=== PATIENT | female | born 2000 | race African-American/Black ===

== ENCOUNTER 2022-06-12 12:12 | Emergency (ER) | payer OTHER, SELFPAY ==
[2022-06-12 12:27] VITALS: BP 108/76; PULSE 80; RESP 16; TEMP 36.2; O2SAT 96; BMI 28.9
--- OUTSIDE RECORDS SUMMARY | 2022-06-12 14:04 | XMS_ITS | Clinical Summary ---
:2000 Author Organization [employer] [place] [address] Care Team Providers Name Role Phone Gil Rivera MD Primary Care Provider [phone] Allergies No known active allergies Medications Medication Sig Dispensed Refills Start End Status Date Date blood sugar Test blood 300 Each 0 11/08/19 Active diagnostic glucose 3 times 21 (OneTouch Verio a day. test strips) stripIndications: Uncontrolled type 2 diabetes mellitus with hyperglycemia (HC) lancets 33 gauge As directed. 100 Each 3 12/15/19 Active miscIndications: test 3x day 21 Type 2 diabetes mellitus without complication, with long-term current use of insulin (HC) Insulin [place], USE WITH INSULIN 100 Each 3 08/03/20 Active Disposable, DIRECTED 21 (UltiCare Pen Needle) 32 gauge x /32Indications: Uncontrolled type 2 diabetes mellitus with hyperglycemia (HC) paliperidone Inject 117 mg 0 Act kaitlin palmitate (INVEGA intramuscular SUSTENNA) 117 every 4 weeks. mg/0.75 mL intramuscular syringe Vitamin D-3 50 mcg Take 2,000 units 0 11/04/19 Active (2,000 unit) by mouth once 22 capsule daily. metFORMIN Take 2 Tablets 360 Tablet 3 12/20/19 Acti ve (GLUCOPHAGE XR) 500 (1,000 mg) by 22 mg Extended-Release mouth 2 times tabletIndications: daily with Uncontrolled type 2 meals. diabetes mellitus with hyperglycemia (HC) cholecalciferol Take 1 Capsule 100 Capsule 0 12/20/19 Active (Vitamin D-3) 2,000 (2,000 units) by 22 unit mouth once capsuleIndications: daily. Vitamin D deficiency ferrous sulfate 325 Take 1 Tablet 90 Tablet 0 12/20/19 Active mg delayed release (325 mg) by 22 tabletIndications: mouth once daily Other iron with a meal. deficiency anemia FreeStyle Juan 2 To be used to 2 Each 12 01/24/20 Active SensorIndications: read blood 22 Uncontrolled type 2 sugars per diabetes mellitus sde's with hyperglycemia directions. (HC) Change sensor every 14 days Semglee,insulin Inject 50 units 15 mL 05/08/20 Active glarg-yfgn,Pen 100 subcutaneous 22 unit/mL (3 mL) before bedtime. penIndications: Uncontrolled type 2 diabetes mellitus with hyperglycemia (HC) Blood-Glucose Use to test 1 Kit 05/08/20 Acti ve MeterIndications: blood glucose 3 22 Uncontrolled type 2 times a day. diabetes mellitus with hyperglycemia (HC) insulin degludec, Inject 50 units 8 mL 05/22/20 Active U-200, (Tresiba subcutaneous 22 FlexTouch U-200) once daily. 200 unit/mL (3 mL) penIndications: Uncontrolled type 2 diabetes mellitus with hyperglycemia (HC) semaglutide Inject 0.25 mg 1.5 mL 05/22/20 Act kaitlin (Ozempic) 2 mg/1.5 subcutaneous 22 mL (0.25mg or 0.5mg once weekly. doses) After 1 month penIndications: increase to Uncontrolled type 2 0.5mg WEEKLY diabetes mellitus with hyperglycemia (HC) insulin glargine, Inject 50 units 15 mL 12/20/19 Discontinued U-100, (Basaglar subcutaneous 22 022 (*Medication KwikPen U-100 before bedtime. adjustment) Insulin) 100 Product desired: unit/mL (3 mL) BASAGLAR penIndications: Uncontrolled type 2 diabetes mellitus with hyperglycemia (HC) insulin aspart, Inject 15 units 15 mL 05/08/20 Discontinued U-100, (NOVOLOG subcutaneous 22 022 ( *Medication FLEXPEN) 100 three times adjus tment) unit/mL (3 mL) daily before penIndications: meals. Uncontrolled type 2 diabetes mellitus with hyperglycemia (HC) Dexcom G6 Filter Tender Jelly To be used to 1 Each 0 05/08/20 Discontinued for continuous read blood 22 022 (*Av ailability/ blood glucose sugars follow Fo rmulary monitor sde change/ Cost of (CGM)Indications: directions. medication) Uncontrolled type 2 diabetes mellitus with hyperglycemia (HC) Dexcom G6 Sensor To be used to 9 Each 3 05/08/20 Discontinued for continuous read blood 22 022 (*Av ailability/ blood glucose sugars, follow F ormulary monitor sde change/ Cost of (CGM)Indications: directions. medication) Uncontrolled type 2 diabetes mellitus with hyperglycemia (HC) Dexcom G6 To be used to 1 Each 4 05/08/20 Discon tinued Transmitter for read blood 22 022 (*A vailability/ continuous blood sugars, follow Formulary glucose monitor sde c hange/Cost of (CGM)Indications: directions. medication) Uncontrolled type 2 diabetes mellitus with hyperglycemia (HC) fluconazole Take 1 Tablet 2 Tablet 0 05/22/20 Expi red (DIFLUCAN) 150 mg (150 mg) by 22 022 tabletIndications: mouth one time Yeast vaginitis for 1 dose. May repeat in 3 days. fluconazole Take 1 Tablet 2 Tablet 0 05/27/20 Expi red (DIFLUCAN) 150 mg (150 mg) by 22 022 tabletIndications: mouth every 48 Acute vaginitis hours for 2 doses. 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 Secondary to neuroleptic. Schizoaffective disorder, bipolar type 08/06/2019 Overview: Patient stabilized with lithium 600 mg B ID and haloperidol 5 mg TID (level of haloperidol at this dose was 12.5). Haloperidol decreased to 5 mg BID due to side effects (drooling and akathisa) before discharge. 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 09/07/19 Hyperglycemia 09/07/2020 Encounters Date Type Specialty Care Team Description 05/27/2022 Emergency [facility] kimberley Cisneros NP (Primary Dx) 05/27/2022 Travel 05/22/2022 Nurse/Clinic Staff Only Mant oux (PPD mantoux test performed) 05/22/2022 Patient Outreach Latisha Koehler Diabe tes (High A1C) RN 05/22/2022 Travel 05/16/2022 Telemedicine Terri Nelson Failed Appo intment; THIEN Ritchie Telehealth 05/08/2022 Office Visit Gil Rivera MD 05/08/2022 Travel 04/24/2022 Travel 04/24/2022 Nurse Triage Gil Rivera Vaginal Disch layne Carmichael MD from Last 3 Months Immunizations Name Administration Dates Next Due COVID-19 vaccine (A and A Travel Service 09/21/2021, 12/27/2020, 30mcg/0.3mL) ANGELIQUE ORNELAS DTaP 02/16/2005, 09/23/2001, 02/14/2001, 2000, 2000, 2000 DTaP-HIB (TriHIBIT) 09/23/2001 HIB PRP-OMP (PedvaxHIB) 05/23/2001 HIB PRP-T (ActHIB,Hiberix) 09/23/2001, 05/23/2001, 1, 2000 Hepatitis A (Peds) 05/20/2009, 2008 Hepatitis B (Peds) 02/14/2001, 2000, 2000 Hepatitis B, Unspecified 02/14/2001, 2000, 2000 Hib Conjugate, Unspecified 2000, 2000 Human Papilloma Virus Vaccine 10/20/2012, 06/19/2012, 2011 Inactivated Polio Vaccine 02/16/2005, 02/14/2001, 2000 , 2000 Influenza A (H1N1), Inactivated 08/04/2009 Influenza A (H1N1), Inactivated (Age 1208/04/2009 >=3 Years) Influenza Virus, Unspecified 08/24/2013, 06/14/2011, 009, 07/08/2008, 07/08/2007 Influenza, IIV3 (Age >=3 years) 08/24/2013, 06/14/2011, 04/27, 07/08/2008, 07/08/2007 Influenza, IIV4 08/20/2017, 11/05/2014 Influenza,LAIV4 Live Intranasal 05/14/2012 (Flumist) MMR 02/16/2005, 09/23/2001 Meningococcal Vaccine (Menactra) 04/15/2012 Meningococcal Vaccine (Menveo) 03/25/2018 Pneumococcal Poly,23-Valent 04/04/2021 (Pneumovax) Pneumococcal conj 7-Valent (Prevnar 7) 09/23/2001, 1, 2000 Polio Virus, Unspecified 2000, 2000 Tdap 04/15/2012 Tuberculin (PPD) 05/22/2022 Varicella Vaccine 10/09/2006, 05/23/2001 Family History Medical History Relation Name Comments Diabetes Paternal Grandmother Eczema Sister Obesity Sister Relation Name Status Comments Paternal Grandmother Sister Social History Tobacco Use Types Packs/Day Years Used Date Never Smoker Smokeless Tobacco: Never Used Tobacco Cessation: Counseling Given: No Alcohol Use Standard Drinks/Week Comments No 0 (1 standard drink = 0.6 oz pure alcoho l) Sex Assigned at Date Recorded Not on file COVID-19 Exposure Response Date Recorded In the last 10 days, have you been in contact with No / Unsu re 05/27/2022 11:38 AM CDT someone who was confirmed or suspected to have Coronavirus/COVID-19? Obstetrics History Last Filed Vital Signs Vital Sign Reading Time Taken Comments Blood Pressure 125/82 05/27/2022 11:47 AM CDT Pulse 101 05/27/2022 12:00 PM CDT Temperature 36.8 ??C (98.2 ??F) 05/27/2022 11:47 AM CDT Respiratory Rate 18 05/27/2022 11:47 AM CDT Oxygen Saturation 97% 05/27/2022 12:00 PM CDT Inhaled Oxygen Concentration - - Weight 87.1 kg (192 lb) 05/27/2022 11:47 AM CDT Height 172.7 cm (5' 8) 05/27/2022 11:47 AM CDT Body Mass Index 29.19 05/27/2022 11:47 AM CDT Plan of Treatment Upcoming Encounters Date Type Specialty Care Team Description 06/18/2022 Patient Outreach Latisha Koehler RN [phone] [place] [address] (Wo rk) 08/07/2022 Office Visit Gil Rivera MD [address] [place], [place] [address] (Wo rk) Health Maintenance Due Date Last Done Comments Pap test for age 21-65 2021 COVID-19 vaccine series (4 - 11/16/2021 09/21/2021, 021, Booster for Pfizer series) 12/04/2020 Pneumococcal series for age 19-64 04/04/2022 04/04/2021 (2 - PCV) Tetanus booster 04/15/2022 04/15/2012 Influenza for age 9-49 04/26/2022 08/20/2017, 11/05/2014, 08/24/2013, Additional history exists Depression screening for age 12+ 11/23/2022 11/23/2021, 05/2021, 10/14/2020, Additional history exists BMI (ht and wt on same day) for 01/23/2023 01/23/2022, 11/25, age 18+ 04/04/2021, Additional history exists Hepatitis B series for Diabetes Completed 02/14/2001, 01/25, 2000, Additional history exists Tdap Completed 04/15/2012 HPV series for age 9-26 Completed 10/20/2012, 06/19/2012, 04/15/2012 Hepatitis C screening for age Completed 12/10/2017 18-79 Procedures Procedure Name Priority Date/Time Associated Diagnosis Comme nts TRICHOMONAS, STAT 05/27/2022 12:17 Results for this PORSCHE, AND PM CDT procedure are i n BACTERIAL VAGINOSIS the resu lts BY REYES section. URINALYSIS STAT 05/27/2022 12:02 Results for this MICROSCOPIC PM CDT procedure are i n the results section. UA W/ SEDIMENT EXAM STAT 05/27/2022 12:02 Resu lts for this REFLEXED PER PM CDT procedure are i n CRITERIA the results section. HEMOGLOBIN A1C STAT 05/08/2022 1:36 PM Uncontrolled type 2 Results for this CDT diabetes mellitus procedure are in with hyperglycemia the resul ts (HC) section. from Last 3 Months Results (ABNORMAL) TRICHOMONAS, PORSCHE, AND BACTERIAL VAGINOSIS BY REYES (05/27/2022 12:17 PM CDT) [facility] Method Time Signature PORSCHE SPECIES Positive (A) Negative 05/29/2022 [facility]15 PM CDT LABORATORY-CE NTRAL LABORATORY PORSCHE Negative Negative 05/29/2022 [facility]ATA 1:15 PM CDT LABORATORY-CE NTRAL LABORATORY TRICHOMONAS VVA Negative Negative 05/29/2022 [facility] 1:15 PM CDT LABORATORY-CE NTRAL LABORATORY BACTERIAL Negative Negative 05/29/2022 [facility] VAGINOSIS 1:15 PM CDT LABORATORY-CE NTRAL LABORATORY Specimen Anatomical Collection Method Collection Time Receive d Time (Source) Location / / Volume Laterality Other VAGINAL SWAB / Non-Blood / 05/27/2022 12:17 2 Unknown Unknown PM CDT 12:20 PM CDT Wendy Ramirez MD MICROBIOLOGY Performing Organization Address City/State/ZIP Code Phon e Number [facility] [address] [place] [address] LABORATORY-CENTRAL 2000 LABORATORY (ABNORMAL) URINALYSIS MICROSCOPIC (05/27/2022 12:02 PM CDT) [facility] Method Time Signature RBC 26-50 (A) 0-2, None 05/27/2022 [place] Seen /HPF 12:13 PM [facility] LAB[facility]ORY WBC 0-2 0-2, 3-5, 05/27/2022 [place] None Seen 12:13 PM CDT [facility] /HPF LABORATORY BACTERIA Many (A) None 05/27/2022 [place] Seen, 12:13 PM CDT [facility] Rare, Few LABORATORY Bacteria/ HPF EPITHELIAL Moderate (A) None 05/27/2022 [facility] CELLS Seen, Few 12:13 PM [facility] Epi/HPF LABORATORY Specimen Anatomical Collection Method Collection Time Receive d Time (Source) Location / / Volume Laterality Urine URINE SPECIMEN / Non-Blood / 05/27/2022 12:02 022 Unknown Unknown PM CDT 12:06 PM CDT Maryanne Meraz NP URINE Performing Organization Address City/State/ZIP Code Phon e Number [facility] LABORATORY [address] [place] [address] (ABNORMAL) UA W/ SEDIMENT EXAM REFLEXED PER CRITERIA (05/27/2022 12:02 PM CDT) [facility] Method Time Signature COLOR Yellow Yellow Color 05/27/2022 [facility] 12:10 PM [facility] LABORATORY CLARITY Clear Clear 05/27/2022 [facility] Clarity 12:10 PM [facility] SPECIFIC >=1.030 (A) 1.010, 05/27/2022 [facility] GRAVITY,URINE 1.015, 12:10 PM MEDICAL 1.020, 1.025 T [facility]ENTER LABORATORY PH,URINE 5.5 6.0, 7.0, 05/27/2022 [place] 8.0, 5.5, 12:10 PM MEDICAL 6.5, 7.5, CDT CENTER 8.5 LABORATORY UROBILINOGEN, Normal Normal EU/dl 05/27/2022 [facility] 12:10 PM [facility]ICAL T [facility] LABORATORY PROTEIN, Trace (A) Negative 05/27/2022 [facility] URINE mg/dL 12:10 PM [facility] LABORATORY GLUCOSE, 500 (A) Negative 05/27/2022 [facility] URINE mg/dL 12:10 PM [facility] LABORATORY KETONES,URINE >=80 (A) Negative 05/27/2022 [facility] mg/dL 12:10 PM [facility] LABORATORY BILIRUBIN,URI Negative Negative 05/27/2022 [facility] NE 12:10 PM [facility] LABORATORY OCCULT Moderate (A) Negative 05/27/2022 [facility] BLOOD,URINE 12:10 PM [facility] LABORATORY NITRITE Negative Negative 05/27/2022 [facility] 12:10 PM [facility] LABORATORY LEUKOCYTE Negative Negative 05/27/2022 [facility] ESTERASE 12:10 PM [facility] LABORATORY Specimen Anatomical Collection Method Collection Time Receive d Time (Source) Location / / Volume Laterality Urine URINE SPECIMEN / Non-Blood / 05/27/2022 12:02 022 Unknown Unknown PM CDT 12:06 PM CDT Maryanne Meraz NP URINE Performing Organization Address City/State/ZIP Code Phon e Number [facility] LABORATORY [address] [place] [address] (ABNORMAL) HEMOGLOBIN A1C MONITORING (POCT) (05/08/2022 1:36 PM CDT) [facility] gist Method Time Signature HEMOGLOBIN A1C >14.0 (H) <=6.4 % 05/08/2022 [facility] MONITORING 1:48 PM CDT [place] [facility] Specimen Anatomical Collection Method / Collection Time Recei yogi Time (Source) Location / Volume Laterality Blood BLOOD SPECIMEN / Venipuncture / 05/08/2022 1:36 2021 1:37 Unknown Unknown PM CDT PM CDT Narrative [facility] - 022 1:48 PM CDT ? (<=6.9%) ? Indicates good control ? (7.0% to 7.9%) ? Indicates fa ir control ? (>=8.0%) ? Indicates poor control ?? NOTE: ??These thresholds are guideli eunice and ?individual targets may va ry. Falsely low levels may be seen with: Recent Transfusion, Recent Significant B lood Loss, Hemolytic Diseases, or Falsely elevated levels may be seen with : Untreated Anemias, Splenectomy ? Gil Rivera MD CHEMISTRY Performing Organization Address City/State/ZIP Code Phon e Number [facility] [address] [place] [address] from Last 3 Months Insurance Payer Benefit Plan / Subscriber ID Effective Dates Phone Addre ss Type Group MEDICARE PART A MEDICARE PART A [id number] 2020-Present ATTN: CLAIMS - HB USE ONLY HB ONLY [address] [place] [address] MEDICARE PART B MEDICARE PART B [id number] 2020-Present ATTN: CLAIMS - HB USE ONLY HB ONLY [address] [place] [address] [employer] [place] [id number] 2017-Present [address] [place] [address] [employer] [place] [id number] 2017-Present [address] [place] [address] MEDICARE - PB MEDICARE [place] [id number] 2020-Present ATT N: CLAIMS USE ONLY ONLY [address] [place] [address] [place]ID [place] [id number] 2016-Present [address] [address] [place] [address] [place] [id number] 2018-Presen [address] [address] t [place] [address] CINDYKENIA Personal/Family Mother 1979 [address] ([address]) [place] [address] Advance Directives Latest Code Status on File Code Status Date Activated Date Inactivated Comments Full Code 10/19/2021 4:09 AM 10/22/2021 1:39 PM Code Status Discussion: Reviewed Preferences Full Code 10/17/2020 7:26 AM 10/18/2020 2:06 AM Code Status Discussion: Not Discussed Full Code 10/10/2020 9:05 AM 10/11/2020 2:06 AM Code Status Discussion: Not Discussed Full Code 09/08/2020 12:08 AM 10/04/2020 4:19 PM Code Status Discussion: Per Advance Care Plan Full Code 06/27/2020 10:14 PM 09/08/2020 12:01 AM Code Status Discussion: Not Discussed Care Teams Medical Microbiologist Relationship Specialty Start Date End Date Gil Rivera MD PCP - General Family Practice 12/13/[address] [place] [address] [place] [address]
--- NOTE | 2022-06-12 15:56 | ED.GENADULT ---
HPI - General Adult General Date Seen: 06/12/22 Chief complaint: Diabetic Related Problem Stated complaint: High blood sugar/yeast infection Time Seen by Provider: 06/12/22 12:41 Source: patient Mode of arrival: ambulatory Limitations: no limitations History of Present Illness HPI narrative: Patient is a 22-year-old female seen in room 2, she comes in with the concerns of a yeast infection, she was seen 1 week ago in [place], given 1 dose of Diflucan, and this helped and then lost her 2nd dose. Presenting here asking for more Diflucan, problem 2. Was 1 of hyperglycemia, she was seen and has known diabetes in [place], she is followed there by diabetic nurse counselors. She says her sugars been elevated for the past 2-3 weeks in the 400 range. She has no fevers chills nausea vomiting or other issues. His came to our hospital case she hardit was r to was good. Related Data Home Medications Medication Instructions Recorded Confirmed metformin .ROUTE 06/12/22 Previous Rx's Medication Instructions Recorded fluconazole 150 mg tablet 150 mg PO Q3D 2 doses #2 tabs 06/12/22 (Diflucan) Allergies Allergy/AdvReac Type Severity Reaction Status Date / Time No Known Drug Allergies Allergy Verified 06/12/22 12:31 Review of Systems Status of ROS: Reports: 6 or more systems reviewed and unremarkable except as noted in History and below PFSH PFS Social History Smoking Status: Never smoker Do you use any of these nicotine containing products: None Second hand tobacco smoke exposure: No How often do you have a drink containing alcohol: never AUDIT-C Alcohol total score: 0 Non-prescribed substance use: denies use Exam Narrative: Exam Narrative: Patient is seen in room 2 she is in no distress, her abdomen is soft there is no guarding no organomegaly no CVA tenderness, bowel sounds are normal. No tenderness. Const: Vital Signs, click to edit/add: Vital Signs - 24 hr 06/12/22 12:27 Temperature 97.1 F L Pulse Rate [Left P ulse Oximeter] 80 Respiratory Rate 16 Blood Pressure [Ri ght Upper Arm] 108/76 Pulse Oximetry 96 Oxygen Delivery Me thod Room Air Documenting provider has reviewed patient's vital signs: yes Course Course Hospital Course: I explained to her she should follow-up for her diabetes, I do not think she is in DKA or any other significant issue currently. She was accepting of this. Take a reasonable course would be to give her course of Diflucan along with the repeat prescription that she can use. She was very comfortable this, I did offer to do a bimanual exam is TD testing and she declined this saying she is not sexually active and she does not want this. Vital Signs Vital signs: Initial Vital Signs Temperature 97.1 F L 06/12/22 12:27 Temperature Source Temporal Artery Scan 06/12/22 12:27 Pulse Rate 80 06/12/22 12:27 Respiratory Rate 16 06/12/22 12:27 Blood Pressure 108/76 06/12/22 12:27 Blood Pressure Mean 86 06/12/22 12:27 Blood Pressure Position Sitting 06/12/22 12:27 Pulse Oximetry 96 06/12/22 12:27 Oxygen Delivery Method 06/12/22 12:27 Vital Signs Temperature 97.1 F L 06/12/22 12:27 Pulse Rate 80 06/12/22 12:27 Respiratory Rate 16 06/12/22 12:27 Blood Pressure 108/76 06/12/22 12:27 Pulse Oximetry 96 06/12/22 12:27 Oxygen Delivery Method 06/12/22 12:27 Temperature 97.1 F L 06/12/22 12:27 Pulse Rate 80 06/12/22 12:27 Respiratory Rate 16 06/12/22 12:27 Blood Pressure 108/76 06/12/22 12:27 Pulse Oximetry 96 06/12/22 12:27 Oxygen Delivery Method 06/12/22 12:27 Discharge Plan Discharge Clinical Impression: Yeast vaginitis Patient Disposition: Home, Self-Care Condition: Stable Instructions: Yeast Infection (ED) Additional Instructions: Home rest use of medications as directed, recommend follow-up with her primary clinic to discuss her diabetes, as this sounds like a problem this been going on for a while. Prescriptions: New fluconazole [Diflucan] 150 mg tablet 150 mg PO Q3D Qty: 2 0RF No Action metformin .ROUTE Stand Alone Forms: MyHealth Info Instructions
== END 2022-06-12 14:21 | disposition home or self-care (01) ==
PROVIDERS: Emergency Provider Family Medicine; PCP Family Medicine
DX: B37.31 Acute candidiasis of vulva and vagina (principal); E11.9 Type 2 diabetes mellitus without complications; Z79.84 Long term (current) use of oral hypoglycemic drugs
CPT/HCPCS: 82962; 99283